=== PATIENT | female | born 1970 | race Two or more races ===

== ENCOUNTER 2017-10-19 10:32 | Outpatient (CLI) | payer OTHER | END 2017-10-19 13:59 | disposition home or self-care (01) | LOC: SONOGRAMA 10:32 → MAMO-SONO 11:15 → SONOGRAMA 13:59 | DX: N84.0 Polyp of corpus uteri (principal); N60.11 Diffuse cystic mastopathy of right breast; N60.12 Diffuse cystic mastopathy of left breast; E55.9 Vitamin D deficiency, unspecified; R87.610 Atypical squamous cells of undetermined significance on cytologic smear of cervix (ASC-US); R87.810 Cervical high risk human papillomavirus (HPV) DNA test positive; E66.3 Overweight; N92.0 Excessive and frequent menstruation with regular cycle; R31.9 Hematuria, unspecified; N83.291 Other ovarian cyst, right side; N83.292 Other ovarian cyst, left side ==

== ENCOUNTER 2022-07-07 09:34 | Outpatient (CLI) | payer OTHER | END 2022-07-07 09:50 | disposition home or self-care (01) | LOC: SONOGRAMA 09:34 | PROVIDERS: ATTEND Obstetrics & Gynecology Gynecology | DX: N83.209 Unspecified ovarian cyst, unspecified side (principal); N83.9 Noninflammatory disorder of ovary, fallopian tube and broad ligament, unspecified; N83.292 Other ovarian cyst, left side; N83.291 Other ovarian cyst, right side; N84.0 Polyp of corpus uteri ==